=== PATIENT | female | born 1950 | race Caucasian/White ===

== ENCOUNTER 2018-06-09 11:43 | Observation (INO) | payer MEDICARE ==
[2018-06-09] MEDS ORDERED: NovoLOG Insulin SQ PRN (13:27)
[2018-06-09] MEDS ORDERED: Colace 100 MG PO PRN (13:27)
[2018-06-09] MEDS ORDERED: TYLENOL 325 MG PO PRN (13:27)
[2018-06-09] MEDS ORDERED: FEVERALL 650 MG PR PRN (13:27)
--- NOTE | 2018-06-09 13:27 | PCM.HP.ADD ---
Addendum to History & Physical - History & Physical Addendum Addendum to History & Physical: This certifies that the History & Physical in the electronic chart reflects the current health status of the patient. If there are changes in the H&P these changes/exceptions are listed as follows.
[2018-06-09] MEDS ORDERED: DUONEB 0.5-3 MG/3 ml Neb IH ONE (13:29)
[2018-06-09] MEDS ORDERED: Sodium Chloride 0.9% 1000 ML 1,000 ML IV SCH (13:30)
[2018-06-09] MEDS: DUONEB 0.5-3 MG/3 ml Neb IH SCH ×2 (13:41→19:33)
--- NOTE | 2018-06-09 14:16 | XRAY ---
Indication: Short of breath. Comparison: May 13, 2011. PA/lateral chest remains hyperinflated without focal infiltrate, consolidation, or large effusion. Heart is not enlarged. Bony thorax again demonstrates mild osteopenia, degenerative changes, and minimal scoliosis. New T6/T7 compression fractures of uncertain chronicity. Impression: Stable COPD. Negative for acute pneumonic process or CHF. New T6/T7 compression fractures of uncertain chronicity.
[2018-06-09 14:43] LABS: Hematocrit 42.3 % (35-47); Hemoglobin 13.6 gm/dl (12.0-16.0); Mean Cell Volume 101.9 fl (78-100); Mean Corpuscular Hemoglobin 32.8 pg (26-32); Mean Corpuscular Hgb Concent. 32.2 g/dl (32-36); Mean Platelet Volume 9.7 fl (6-9.5); Platelet Count 261 K/mm3 (150-450); Red Blood Count 4.15 M/mm3 (4.1-5.4); Red Cell Distribution Width 12.4 % (11.5-14.0); White Blood Count 6.6 K/mm3 (4.0-10.5)
[2018-06-09 14:57] LABS: ALBUMIN 4.5 g/dL (3.5-5.0); ALKALINE PHOSPHATASE 82 U/L (38-126); ANION GAP 14.9 MEQ/L (5-15); BLOOD UREA NITROGEN 8 mg/dL (7-17); CHLORIDE 98 mmol/L (98-107); Calcium 9.5 mg/dL (8.4-10.2); Carbon Dioxide 29 mmol/L (22-30); Creatinine 1 0.77 mg/dL (0.52-1.04); Glucose 126 mg/dL (74-106); NT PRO BNP 90.9 pg/mL (0-900); Potassium 4.3 mmol/L (3.5-5.1); SGOT/AST 29 U/L (14-36); SGPT/ALT 16 U/L (0-35); SODIUM 138 mmol/L (137-145); Total Protein 7.7 g/dL (6.3-8.2)
[2018-06-09] MEDS: Protonix 40MG Tablet PO SCH (15:03)
[2018-06-09] MEDS: Sodium Chloride 0.9% 1000 ML 1,000 ML IV SCH (15:03)
[2018-06-09] MEDS: solu-MEDROL 40 MG IV SCH ×3 (15:03→23:40)
[2018-06-09] MEDS: ROCEPHIN 1 Gm-D5w 50 ml Bag** 1 G/50 ML IVPB IV SCH (15:03)
[2018-06-09] MEDS: Norco 10/325 MG Tablet PO PRN (15:11)
[2018-06-09] MEDS: Zithromax 500 MG/ 250 ML NaCl Premix 500 MG/250 ML IVPB IV SCH (16:08)
[2018-06-09] MEDS ORDERED: Requip 0.5 MG PO ONE (16:18)
[2018-06-09 16:32] LABS: Appearance CLEAR (CLEAR); Bilirubin NEGATIVE (NEGATIVE); Blood NEGATIVE Ery/ul (0-5); Glucose NEGATIVE (NEGATIVE); Ketones NEGATIVE (NEGATIVE); Leukocyte Esterase MODERATE (NEGATIVE); Nitrite NEGATIVE (NEGATIVE); Protein,Urine Dip NEGATIVE (Negative); Specific Gravity 1.003 (1.005-1.025); Urobilinogen NEGATIVE mg/dL (0-1)
[2018-06-09 17:50] LABS: ANISOCYTOSIS 1+; BAND 1 % (0.0-2.0); Granulocyte Absolute (ANC) 5.88 (1.4-6.9); Lymphocytes 4 % (24-44); Monocyte 7 % (0.0-12.0); Neutrophils 88 % (36.0-66.0); Platelet Estimate NORMAL (NORMAL); Total Cells Counted 100
[2018-06-09] MEDS: Cardizem CD 120 MG PO SCH (20:36)
[2018-06-09] MEDS: Cymbalta 30 MG Capsule PO SCH (20:37)
[2018-06-09] MEDS: Pepcid 20 MG PO SCH (20:38)
[2018-06-09] MEDS: ELAVIL 25 MG PO SCH (20:38)
[2018-06-09] MEDS: LYRICA 150MG PO SCH (20:38)
[2018-06-09] MEDS: Requip 0.5 MG PO SCH (20:39)
[2018-06-09] MEDS ORDERED: DILTIAZEM HCL 120 MG PO SCH (22:00)
[2018-06-10] MEDS: DUONEB 0.5-3 MG/3 ml Neb IH SCH ×4 (00:39→20:18)
[2018-06-10] MEDS: Norco 10/325 MG Tablet PO PRN ×3 (05:21→20:02)
[2018-06-10] MEDS: TENORMIN 50 MG PO SCH (09:18)
[2018-06-10] MEDS: ROCEPHIN 1 Gm-D5w 50 ml Bag** 1 G/50 ML IVPB IV SCH (09:18)
[2018-06-10] MEDS: Pepcid 20 MG PO SCH ×2 (09:18→21:20)
[2018-06-10] MEDS: solu-MEDROL 40 MG IV SCH ×4 (09:18→21:21)
[2018-06-10] MEDS: Protonix 40MG Tablet PO SCH (09:23)
[2018-06-10] MEDS: DELTASONE 10 MG PO SCH (09:23)
[2018-06-10] MEDS: Zithromax 500 MG/ 250 ML NaCl Premix 500 MG/250 ML IVPB IV SCH (09:23)
[2018-06-10] MEDS ORDERED: PROVENTIL 2.5 MG/3 ML NEB IH PRN (10:44)
[2018-06-10] MEDS ORDERED: PROVENTIL 2.5 MG/3 ML NEB IH ONE (10:45)
--- NOTE | 2018-06-10 11:29 | PCM.NOTE ---
Date and Time: 06/10/181127 Subjective Assessment: doing little better,still shortness of breath - Review of Systems Constitutional: No Fever, No Chills Eyes: No Symptoms Ears, Nose, & Throat: No Symptoms Respiratory: Cough, Orthopnea, Short Of Breath, Wheezing Cardiac: No Chest Pain, No Edema, No Syncope Abdominal/Gastrointestinal: No Abdominal Pain, No Nausea, No Vomiting, No Diarrhea Genitourinary Symptoms: No Dysuria Musculoskeletal: No Back Pain, No Neck Pain Skin: No Rash Neurological: No Dizziness, No Focal Weakness, No Sensory Changes Psychological: No Symptoms Endocrine: No Symptoms Hematologic/Lymphatic: No Symptoms Immunological/Allergic: No Symptoms Objective Exam General Appearance: no apparent distress, alert Neurologic Exam: alert, oriented x 3, cooperative, normal mood/affect, nml cerebellar function, sensation nml, No motor deficits Skin Exam: normal color, warm, dry Eye Exam: PERRL, EOMI, eyes nml inspection Ears, Nose, Throat Exam: normal ENT inspection, pharynx normal, moist mucous membranes Neck Exam: normal inspection, non-tender, supple, full range of motion Respiratory Exam: normal breath sounds, lungs clear, No respiratory distress Cardiovascular Exam: regular rate/rhythm, normal heart sounds Gastrointestinal/Abdomen Exam: soft, No tenderness, No mass Extremity Exam: normal inspection, normal range of motion Back Exam: normal inspection, normal range of motion, No CVA tenderness, No vertebral tenderness Pelvic Exam: deferred Rectal Exam: deferred OBJECTIVE DATA Vital Signs: Vital Signs - 24 hr Temp Pulse Resp BP BP BP Pulse Ox 06/10/18 11:25 98.1 F 100 H 18 133/63 98 06/10/18 10:52 99 H 22 96 06/10/18 09:18 100 H 141/65 06/10/18 07:05 98.0 F 88 18 123/56 95 06/10/18 05:14 82 22 93 L 06/10/18 04:00 98.2 F 77 22 122/88 94 L 06/10/18 00:41 86 22 95 06/09/18 23:42 98.0 F 89 20 133/67 96 06/09/18 19:41 96 06/09/18 19:37 86 20 96 06/09/18 19:18 98.0 F 86 20 120/56 97 06/09/18 15:39 98.2 F 85 18 123/56 97 06/09/18 13:43 80 20 93 L 06/09/18 12:39 98.3 F 78 18 118/57 118/57 93 L 06/09/18 12:11 98.3 F 78 18 118/57 118/57 93 L Oxygen-Last 24 hours O2 Percentage 3 Liters = 32% O2 Percentage 3 Liters = 32% O2 Percentage 3 Liters = 32% O2 Percentage 3 Liters = 32% O2 Percentage 3 Liters = 32% Pain Assessment - Last Documented Pain Intensity 6 Pain Scale Used 0-10 Pain Scale Intake and Output: Intake & Output 06/07/18 06/08/18 06/09/18 06/10/18 11:59 11:59 11:59 11:59 Intake Total 2653 Output Total 600 Balance 3 Weight 69 kg Lab Results: Accuchecks Accucheck Value: 178 Accucheck Value: 196 Accucheck Value: 189 Lab Results-Last 24 Hours 06/09/18 06/09/18 06/09/18 Range/Units 13:27 13:27 13:30 WBC 6.6 (4.0-10.5) K/mm3 RBC 4.15 (4.1-5.4) M/mm3 Hgb 13.6 (12.0-16.0) gm/dl Hct 42.3 (35-47) % MCV 101.9 H (78-100) fl MCH 32.8 H (26-32) pg MCHC 32.2 (32-36) g/dl RDW 12.4 (11.5-14.0) % Plt Count 261 (150-450) K/mm3 MPV 9.7 H (6-9.5) fl Absolute Granulocytes 5.88 (1.4-6.9) Segmented Neutrophils 88 H (36.0-66.0) % Band Neutrophils 1 (0.0-2.0) % Lymphocytes (Manual) 4 L (24-44) % Monocytes (Manual) 7 (0.0-12.0) % Platelet Estimate NORMAL (NORMAL) RBC Morphology ABNORMAL Anisocytosis 1+ Sodium 138 (137-145) mmol/L Potassium 4.3 (3.5-5.1) mmol/L Chloride 98 (98-107) mmol/L Carbon Dioxide 29 (22-30) mmol/L Anion Gap 14.9 (5-15) MEQ/L BUN 8 (7-17) mg/dL Creatinine 0.77 (0.52-1.04) mg/dL Estimated GFR > 60.0 ML/MIN Glucose 126 H (74-106) mg/dL Hemoglobin A1c 5.37 (4.5-6.0) % Calcium 9.5 (8.4-10.2) mg/dL Total Bilirubin 0.60 (0.2-1.3) mg/dL AST 29 (14-36) U/L ALT 16 (0-35) U/L Alkaline Phosphatase 82 (38-126) U/L NT-Pro-B Natriuret Pep 90.9 (0-900) pg/mL Serum Total Protein 7.7 (6.3-8.2) g/dL Albumin 4.5 (3.5-5.0) g/dL Urine Color (YELLOW) Urine Appearance (CLEAR) Urine pH (5-6) Ur Specific [place] (1.005-1.025) Urine Protein (Negative) Urine Ketones (NEGATIVE) Urine Blood (0-5) Dom/ul Urine Nitrite (NEGATIVE) Urine Bilirubin (NEGATIVE) Urine Urobilinogen (0-1) mg/dL Ur Leukocyte Esterase (NEGATIVE) Urine WBC (Auto) (0-5) /HPF Urine RBC (Auto) (0-2) /HPF U Epithel Cells (Auto) (FEW) /HPF Urine Bacteria (Auto) (NEGATIVE) /HPF Urine Mucus (Auto) (NEGATIVE) /HPF Urine Glucose (NEGATIVE) mg/dL 06/09/ Range/Units 14:10 WBC (4.0-10.5) K/mm3 RBC (4.1-5.4) M/mm3 Hgb (12.0-16.0) gm/dl Hct (35-47) % MCV (78-100) fl MCH (26-32) pg MCHC (32-36) g/dl RDW (11.5-14.0) % Plt Count (150-450) K/mm3 MPV (6-9.5) fl Absolute Granulocytes (1.4-6.9) Segmented Neutrophils (36.0-66.0) % Band Neutrophils (0.0-2.0) % Lymphocytes (Manual) (24-44) % Monocytes (Manual) (0.0-12.0) % Platelet Estimate (NORMAL) RBC Morphology Anisocytosis Sodium (137-145) mmol/L Potassium (3.5-5.1) mmol/L Chloride (98-107) mmol/L Carbon Dioxide (22-30) mmol/L Anion Gap (5-15) MEQ/L BUN (7-17) mg/dL Creatinine (0.52-1.04) mg/dL Estimated GFR ML/MIN Glucose (74-106) mg/dL Hemoglobin A1c (4.5-6.0) % Calcium (8.4-10.2) mg/dL Total Bilirubin (0.2-1.3) mg/dL AST (14-36) U/L ALT (0-35) U/L Alkaline Phosphatase (38-126) U/L NT-Pro-B Natriuret Pep (0-900) pg/mL Serum Total Protein (6.3-8.2) g/dL Albumin (3.5-5.0) g/dL Urine Color STRAW (YELLOW) Urine Appearance CLEAR (CLEAR) Urine pH 6.0 (5-6) Ur Specific [place] 1.003 (1.005-1.025) Urine Protein NEGATIVE (Negative) Urine Ketones NEGATIVE (NEGATIVE) Urine Blood NEGATIVE (0-5) Dom/ul Urine Nitrite NEGATIVE (NEGATIVE) Urine Bilirubin NEGATIVE (NEGATIVE) Urine Urobilinogen NEGATIVE (0-1) mg/dL Ur Leukocyte Esterase MODERATE (NEGATIVE) Urine WBC (Auto) 3-5 (0-5) /HPF Urine RBC (Auto) 3-5 (0-2) /HPF U Epithel Cells (Auto) RARE (FEW) /HPF Urine Bacteria (Auto) RARE (NEGATIVE) /HPF Urine Mucus (Auto) SLIGHT (NEGATIVE) /HPF Urine Glucose NEGATIVE (NEGATIVE) mg/dL Radiology Exams: Radiology Procedures Category Date Time Status CHEST 2 VIEWS (PA AND LAT) Routine Exams 06/09/18 14:03 Completed Multi-Disciplinary Progress Notes: Multi-Disciplinary Progress Notes 06/10/18 08:45 (created 06/10/18 08:54) Case Management Note by Susana Egan PT REPORTS THAT SHE IS FEELING BETTER, BUT STILL EXTREMELY SOB WITH ALL ACTIVITY. DENIES NEEDS FOR DISCHARGE. Initialized on 06/10/18 08:54 - END OF NOTE Assessment/Plan (1) COPD exacerbation Current Visit: Yes Status: Acute Assessment & Plan: Last Vital Signs Temp 98.1 F 06/10/18 11:25 Pulse 100 H 06/10/18 11:25 Resp 18 06/10/18 11:25 BP 133/63 06/10/18 11:25 Pulse Ox 98 06/10/18 11:25 Allergies aspirin Allergy (Verified 06/09/18 13:15) Active Medications Acetaminophen (Feverall 650 Mg) 650 mg ND Q4H PRN PRN PRN Reason: PAIN AND/OR FEVER Stop: 07/09/18 13:26 Acetaminophen (Tylenol 325 Mg) 650 mg PO Q4HPRN PRN PRN Reason: CHEST PAIN Stop: 07/09/18 13:26 Hydrocodone Bitart/Acetaminophen ([place] 10/325 Mg Tablet) 1 tab PO Q6HPRN PRN PRN Reason: PAIN Stop: 06/14/18 14:45 Last Admin: 06/10/18 05:21 Dose: 1 tab Albuterol Sulfate (Proventil 2.5 Mg/3 Ml Neb) 2.5 mg IH Q4H PRN PRN PRN Reason: SHORTNESS OF BREATH/WHEEZING Stop: 07/10/18 10:43 Last Admin: 06/10/18 10:46 Dose: 2.5 mg Albuterol/Ipratropium (Duoneb 0.5-3 Mg/3 Ml Neb) 3 ml IH Q6HRT JO Stop: 07/09/18 13:59 Last Admin: 06/10/18 04:44 Dose: 3 ml Amitriptyline HCl (Elavil 25 Mg) 25 mg PO HS JO Stop: 07/09/18 21:59 Last Admin: 06/09/18 20:38 Dose: 25 mg Atenolol (Tenormin 50 Mg) 50 mg PO DAILY JO Stop: 07/10/18 09:59 Last Admin: 06/10/18 09:18 Dose: 50 mg Diltiazem HCl (Cardizem Cd 120 Mg) 120 mg PO HS [facility] Stop: 07/09/18 21:59 Last Admin: 06/09/18 20:36 Dose: 120 mg Docusate Sodium (Colace 100 Mg) 100 mg PO BIDPRN PRN PRN Reason: CONSTIPATION Stop: 07/09/18 13:26 Duloxetine HCl (Cymbalta 30 Mg Capsule) 60 mg PO HS [facility] Stop: 07/09/18 21:59 Last Admin: 06/09/18 20:37 Dose: 60 mg Famotidine (Pepcid 20 Mg) 20 mg PO Q12HT [facility] Stop: 07/09/18 21:59 Last Admin: 06/10/18 09:18 Dose: 20 mg Azithromycin (Zithromax 500 Mg/ 250 Ml Nacl Premix) 500 mg in 250 mls @ 250 mls /hr IV Q24H10 [facility] Stop: 07/09/18 13:59 Last Admin: 06/10/18 09:23 Dose: 250 mls/hr Ceftriaxone Sodium/Dextrose (Rocephin 1 Gm-D5w 50 Ml Bag) 1 g in 50 mls @ 100 mls/hr IV Q24H10 [facility] Stop: 07/09/18 13:59 Last Admin: 06/10/18 09:18 Dose: 100 mls/hr Sodium Chloride (Sodium Chloride 0.9% 1000 Ml) 1,000 mls @ 0 mls/hr IV .Q0M [facility] Stop: 07/09/18 13:29 Sodium Chloride (Sodium Chloride 0.9% 1000 Ml) 1,000 mls @ 50 mls/hr IV .Q20H [facility] Stop: 07/09/18 13:29 Last Admin: 06/09/18 15:03 Dose: 50 mls/hr Insulin Aspart (Novolog Insulin) 0 unit SQ UD PRN PRN Reason: Accuchek Stop: 07/09/18 13:26 Methylprednisolone Sodium Succinate (Solu-Medrol 40 Mg) 40 mg IV QID [facility] Stop: 07/09/18 12:59 Last Admin: 06/10/18 09:18 Dose: 40 mg Pantoprazole Sodium (Protonix 40mg Tablet) 40 mg PO DAILY [facility] Stop: 07/09/18 13:59 Last Admin: 06/10/18 09:23 Dose: 40 mg Prednisone (Deltasone 10 Mg) 10 mg PO DAILY [facility] Stop: 07/10/18 09:59 Last Admin: 06/10/18 09:23 Dose: 10 mg Pregabalin (Lyrica 150mg) 150 mg PO HS JO Stop: 07/09/18 21:59 Last Admin: 06/09/18 20:38 Dose: 150 mg Ropinirole HCl (Requip 0.5 Mg) 1.5 mg PO JO Stop: 07/09/18 21:59 Last Admin: 06/09/18 20:39 Dose: 0.5 mg Intake & Output 06/09/18 06/10/18 11:59 11:59 Intake Total 2653 Output Total 600 Balance 3 Weight 69 kg Orders 06/09/18 12:30 BLOOD CULTURE Routine 06/09/18 13:00 Methylprednisolone Sod Suc 40M [solu-MEDROL 40 MG] 40 mg IV QID 06/09/18 13:22 Supervisor Pipe Finishing/Discharge Plan 06/09/18 13:27 Place in Observation ROUTINE Acetaminophen 325 mg [Tylenol 325 mg] 650 mg PO Q4HPRN PRN Acetaminophen 650 mg [Feverall 650 mg] 650 mg ND Q4H PRN PRN Docusate Sodium 100 mg [Colace 100 MG] 100 mg PO BIDPRN PRN Insulin Aspart [NovoLOG Insulin] See Dose Instructions SQ UD PRN Oxygen NASAL CANNULA 2 lpm 06/09/18 13:30 Up Ad Tricia TOLERATED Accucheck ACHS Telemetry PROTOCOL NaCl 0.9% 1000 ml [Sodium Chloride 0.9% 1000 ML] 1,000 ml IV 50 mls/hr NaCl 0.9% 1000 ml [Sodium Chloride 0.9% 1000 ML] 1,000 ml IV TKO Peak Expiratory Flow Rate ONCE 06/09/18 14:00 Albuterol/Ipratropium 3ml Neb* [DUONEB 0.5-3 MG/3 ml Neb] 3 ml IH Q6HRT Azithromycin 500 mg/250 ml [Zithromax 500 MG/ 250 ML NaCl Premix] 500 mg in 250 ml IV Q24H10 Ceftriaxone 1 GM/50 ML PREMIX* [ROCEPHIN 1 Gm-D5w 50 ml Bag] 1 g in 50 ml IV Q24H10 PANTOPRAZOLE 40 mg Tablet [Protonix 40MG Tablet] 40 mg PO DAILY 06/09/18 14:04 Respiratory Therapy Assessment DAILY 06/09/18 14:46 Hydrocodone/APAP 10/325 mg [[place] 10/325 MG Tablet] 1 tab PO Q6HPRN PRN 06/09/18 19:40 Pulse Oximetry .spot check 06/09/18 22:00 Amitriptyline HCl 25 mg [Elavil 25 mg] 25 mg PO HS Diltiazem HCl 120 mg [Cardizem CD 120 MG] 120 mg PO HS Duloxetine HCl 30 mg [Cymbalta 30 MG Capsule] 60 mg PO HS Famotidine 20 mg [Pepcid 20 MG] 20 mg PO Q12HT Pregabalin [Lyrica 150Mg] 150 mg PO HS Ropinirole HCl 0.5 mg [Requip 0.5 MG] 1.5 mg PO HS 06/09/18 Dinner 1800 Calorie ADA 06/10/18 10:00 Atenolol 50 mg [Tenormin 50 mg] 50 mg PO DAILY Prednisone 10 mg [Deltasone 10 mg] 10 mg PO DAILY 06/10/18 10:44 Albuterol 2.5 mg/3 ml Neb [Proventil 2.5 mg/3 ml Neb] 2.5 mg IH Q4H PRN PRN Lab Tests 06/09/18 06/09/18 06/09/18 13:27 13:27 13:30 WBC 6.6 RBC 4.15 Hgb 13.6 Hct 42.3 MCV 101.9 H MCH 32.8 H MCHC 32.2 RDW 12.4 Plt Count 261 MPV 9.7 H Absolute Granulocytes 5.88 Segmented Neutrophils 88 H Band Neutrophils 1 Lymphocytes (Manual) 4 L Monocytes (Manual) 7 Platelet Estimate NORMAL RBC Morphology ABNORMAL Anisocytosis 1+ Sodium 138 Potassium 4.3 Chloride 98 Carbon Dioxide 29 Anion Gap 14.9 BUN 8 Creatinine 0.77 Estimated GFR > 60.0 Glucose 126 H Hemoglobin A1c 5.37 Calcium 9.5 Total Bilirubin 0.60 AST 29 ALT 16 Alkaline Phosphatase 82 NT-Pro-B Natriuret Pep 90.9 Serum Total Protein 7.7 Albumin 4.5 Urine Color Urine Appearance Urine pH Ur Specific [place] Urine Protein Urine Ketones Urine Blood Urine Nitrite Urine Bilirubin Urine Urobilinogen Ur Leukocyte Esterase Urine WBC (Auto) Urine RBC (Auto) U Epithel Cells (Auto) Urine Bacteria (Auto) Urine Mucus (Auto) Urine Glucose 06/09/18 14:10 WBC RBC Hgb Hct MCV MCH MCHC RDW Plt Count MPV Absolute Granulocytes Segmented Neutrophils Band Neutrophils Lymphocytes (Manual) Monocytes (Manual) Platelet Estimate RBC Morphology Anisocytosis Sodium Potassium Chloride Carbon Dioxide Anion Gap BUN Creatinine Estimated GFR Glucose Hemoglobin A1c Calcium Total Bilirubin AST ALT Alkaline Phosphatase NT-Pro-B Natriuret Pep Serum Total Protein Albumin Urine Color STRAW Urine Appearance CLEAR Urine pH 6.0 Ur Specific [place] 1.003 Urine Protein NEGATIVE Urine Ketones NEGATIVE Urine Blood NEGATIVE Urine Nitrite NEGATIVE Urine Bilirubin NEGATIVE Urine Urobilinogen NEGATIVE Ur Leukocyte Esterase MODERATE Urine WBC (Auto) 3-5 Urine RBC (Auto) 3-5 U Epithel Cells (Auto) RARE Urine Bacteria (Auto) RARE Urine Mucus (Auto) SLIGHT Urine Glucose NEGATIVE Code(s): J44.1 - CHRONIC OBSTRUCTIVE PULMONARY DISEASE W (ACUTE) EXACERBATION (2) COPD with emphysema Current Visit: Yes Status: Acute Code(s): J43.9 - EMPHYSEMA, UNSPECIFIED
[2018-06-10] MEDS: Sodium Chloride 0.9% 1000 ML 1,000 ML IV SCH (14:58)
[2018-06-10] MEDS: LYRICA 150MG PO SCH (21:19)
[2018-06-10] MEDS: Cardizem CD 120 MG PO SCH (21:19)
[2018-06-10] MEDS: Cymbalta 30 MG Capsule PO SCH (21:19)
[2018-06-10] MEDS: ELAVIL 25 MG PO SCH (21:19)
[2018-06-10] MEDS: Requip 0.5 MG PO SCH (21:20)
[2018-06-11] MEDS: DUONEB 0.5-3 MG/3 ml Neb IH SCH ×2 (05:41→07:15)
[2018-06-11] MEDS: TENORMIN 50 MG PO SCH (07:49)
[2018-06-11] MEDS: Norco 10/325 MG Tablet PO PRN (07:49)
[2018-06-11] MEDS: Pepcid 20 MG PO SCH (07:50)
[2018-06-11] MEDS: Protonix 40MG Tablet PO SCH (07:50)
[2018-06-11] MEDS: DELTASONE 10 MG PO SCH (07:50)
[2018-06-11] MEDS: solu-MEDROL 40 MG IV SCH (09:59)
[2018-06-11] MEDS: ROCEPHIN 1 Gm-D5w 50 ml Bag** 1 G/50 ML IVPB IV SCH (09:59)
[2018-06-11] MEDS: Zithromax 500 MG/ 250 ML NaCl Premix 500 MG/250 ML IVPB IV SCH (10:43)
[2018-06-11 12:05] VITALS: BP 132/60; PULSE 76; O2SAT 98
--- NOTE | 2018-06-11 12:19 | PCM.DS ---
Discharge Summary Date of Admission: 06/09/18 11:55 Admitting Physician: EDWARD MATUTE Primary Care Provider: EDWARD MATUTE Allergies Allergies aspirin Allergy (Verified 06/09/18 13:15) Hospital Summary - Hospital Course Hospital Course: Last Vital Signs Temp 97.8 F 06/11/18 12:00 Pulse 76 06/11/18 12:00 Resp 21 06/11/18 12:00 BP 132/60 06/11/18 12:00 Pulse Ox 98 06/11/18 12:00 Allergies aspirin Allergy (Verified 06/09/18 13:15) Active Medications Acetaminophen (Feverall 650 Mg) 650 mg DC Q4H PRN PRN PRN Reason: PAIN AND/OR FEVER Stop: 07/09/18 13:26 Acetaminophen (Tylenol 325 Mg) 650 mg PO Q4HPRN PRN PRN Reason: CHEST PAIN Stop: 07/09/18 13:26 Last Admin: 06/10/18 21:23 Dose: 650 mg Hydrocodone Bitart/Acetaminophen ([place] 10/325 Mg Tablet) 1 tab PO Q6HPRN PRN PRN Reason: PAIN Stop: 06/14/18 14:45 Last Admin: 06/11/18 07:49 Dose: 1 tab Albuterol Sulfate (Proventil 2.5 Mg/3 Ml Neb) 2.5 mg IH Q4H PRN PRN PRN Reason: SHORTNESS OF BREATH/WHEEZING Stop: 07/10/18 10:43 Last Admin: 06/10/18 10:46 Dose: 2.5 mg Albuterol/Ipratropium (Duoneb 0.5-3 Mg/3 Ml Neb) 3 ml IH Q6HRT JO Stop: 07/09/18 13:59 Last Admin: 06/11/18 07:15 Dose: 3 ml Amitriptyline HCl (Elavil 25 Mg) 25 mg PO HS JO Stop: 07/09/18 21:59 Last Admin: 06/10/18 21:19 Dose: 25 mg Atenolol (Tenormin 50 Mg) 50 mg PO DAILY JO Stop: 07/10/18 09:59 Last Admin: 06/11/18 07:49 Dose: 50 mg Diltiazem HCl (Cardizem Cd 120 Mg) 120 mg PO HS [facility] Stop: 07/09/18 21:59 Last Admin: 06/10/18 21:19 Dose: 120 mg Docusate Sodium (Colace 100 Mg) 100 mg PO BIDPRN PRN PRN Reason: CONSTIPATION Stop: 07/09/18 13:26 Duloxetine HCl (Cymbalta 30 Mg Capsule) 60 mg PO HS [facility] Stop: 07/09/18 21:59 Last Admin: 06/10/18 21:19 Dose: 60 mg Famotidine (Pepcid 20 Mg) 20 mg PO Q12HT [facility] Stop: 07/09/18 21:59 Last Admin: 06/11/18 07:50 Dose: 20 mg Azithromycin (Zithromax 500 Mg/ 250 Ml Nacl Premix) 500 mg in 250 mls @ 250 mls /hr IV Q24H10 [facility] Stop: 07/09/18 13:59 Last Admin: 06/11/18 10:43 Dose: 250 mls/hr Ceftriaxone Sodium/Dextrose (Rocephin 1 Gm-D5w 50 Ml Bag) 1 g in 50 mls @ 100 mls/hr IV Q24H10 [facility] Stop: 07/09/18 13:59 Last Admin: 06/11/18 09:59 Dose: 100 mls/hr Sodium Chloride (Sodium Chloride 0.9% 1000 Ml) 1,000 mls @ 0 mls/hr IV .Q0M [facility] Stop: 07/09/18 13:29 Last Admin: 06/11/18 10:54 Dose: 50 mls/hr Sodium Chloride (Sodium Chloride 0.9% 1000 Ml) 1,000 mls @ 50 mls/hr IV .Q20H [facility] Stop: 07/09/18 13:29 Last Admin: 06/10/18 14:58 Dose: 50 mls/hr Insulin Aspart (Novolog Insulin) 0 unit SQ UD PRN PRN Reason: Accuchek Stop: 07/09/18 13:26 Last Admin: 06/10/18 22:54 Dose: 2 unit Methylprednisolone Sodium Succinate (Solu-Medrol 40 Mg) 40 mg IV QID [facility] Stop: 07/09/18 12:59 Last Admin: 06/11/18 09:59 Dose: 40 mg Pantoprazole Sodium (Protonix 40mg Tablet) 40 mg PO DAILY JO Stop: 07/09/18 13:59 Last Admin: 06/11/18 07:50 Dose: 40 mg Prednisone (Deltasone 10 Mg) 10 mg PO DAILY JO Stop: 07/10/18 09:59 Last Admin: 06/11/18 07:50 Dose: 10 mg Pregabalin (Lyrica 150mg) 150 mg PO HS JO Stop: 07/09/18 21:59 Last Admin: 06/10/18 21:19 Dose: 150 mg Ropinirole HCl (Requip 0.5 Mg) 1.5 mg PO HS JO Stop: 07/09/18 21:59 Last Admin: 06/10/18 21:20 Dose: 1.5 mg Intake & Output 06/11/18 06/12/18 11:59 11:59 Intake Total 2955 Output Total 1050 Balance 1905 Microbiology 06/09/18 14:22 Blood Blood Culture - Preliminary NO GROWTH TO DATE 06/09/18 12:30 Blood Blood Culture - Preliminary NO GROWTH TO DATE - Vitals & Intake/Output Vital Signs: Vital Signs Temperature 97.8 F 06/11/18 12:00 Pulse Rate 76 06/11/18 12:00 Respiratory Rate 21 06/11/18 12:00 Blood Pressure 132/60 06/11/18 12:00 O2 Sat by Pulse Oximetry 98 06/11/18 12:00 Oxygen-Last Documented O2 Percentage 4 Liters = 36% Intake & Output: Intake & Output 06/09/18 06/10/18 06/11/18 06/12/18 11:59 11:59 11:59 11:59 Intake Total 2653 2955 Output Total 600 1050 Balance 2053 1905 Weight 69 kg - Lab Result Diagrams: 06/09/18 13:27 06/09/18 13:27 Lab Results-Last 24 Hrs: Accuchecks Date 06/11/18 Date 06/10/18 Time 07:30 Time 21:45 Accucheck Value: 130 Accucheck Value: 219 Accucheck Value: 183 Micro Results-Entire Visit: Microbiology 06/09/18 14:22 Blood Culture - Preliminary Blood NO GROWTH TO DATE 06/09/18 12:30 Blood Culture - Preliminary Blood NO GROWTH TO DATE Accuchecks Date 06/11/18 Date 06/10/18 Time 07:30 Time 21:45 Accucheck Value: 130 Accucheck Value: 219 Accucheck Value: 183 - Radiology Exams Ordered Rad Exams-Entire Visit: Radiology Procedures Category Date Time Status CHEST 2 VIEWS (PA AND LAT) Routine Exams 06/09/18 14:03 Completed - Procedures and Test Procedures and Tests throughout Hospitalization: Therapy Orders & Screens 06/09/18 13:22 RT Screen per Nursing Assess Comment: Protocol Order Physician Instructions: Greater than 3 points order RT Admission Screen Reason For Exam: Triggered on Admission Diagnosis: COPD EXACERBATION Diagnosis: COPD EXACERBATION Pneumonia: No Home O2: Yes: 3-4L Asthma: No CHF: No Home CPAP/BIPAP: No Home Nebs/MDI: Yes Total Points: 10 Smoking Cessation Education Comment: Diagnosis: COPD EXACERBATION Smoking Status: Current some day smoker How long have you smoked: 8YEARS Have you smoked in the past 12 months: Yes Do you dip or chew tobacco: No 06/09/18 13:27 Oxygen NASAL CANNULA 2 lpm Comment: Diagnosis: COPD EXACERBATION Respiratory Therapy Consult ROUTINE Comment: Reason For Exam: Diagnosis: COPD EXACERBATION 06/09/18 13:30 Peak Expiratory Flow Rate ONCE Comment: Reason For Exam: Diagnosis: COPD EXACERBATION 06/09/18 14:04 Respiratory Therapy Assessment DAILY Comment: Diagnosis: COPD EXACERBATION Discharge Exam General Appearance: no apparent distress, alert Neurologic Exam: alert, oriented x 3, cooperative, normal mood/affect, nml cerebellar function, sensation nml, No motor deficits Skin Exam: normal color, warm, dry Eye Exam: PERRL, EOMI, eyes nml inspection Ears, Nose, Throat Exam: normal ENT inspection, pharynx normal, moist mucous membranes Neck Exam: normal inspection, non-tender, supple, full range of motion Respiratory Exam: normal breath sounds, lungs clear, No respiratory distress Cardiovascular Exam: regular rate/rhythm, normal heart sounds Gastrointestinal/Abdomen Exam: soft, No tenderness, No mass Extremity Exam: normal inspection, normal range of motion Back Exam: normal inspection, normal range of motion, No CVA tenderness, No vertebral tenderness Pelvic Exam: deferred Rectal Exam: deferred Final Diagnosis/Problem List - Final Discharge Diagnosis/Problem (1) COPD exacerbation Current Visit: Yes Status: Acute (2) COPD with emphysema Current Visit: Yes Status: Acute - Discharge Discharge Date: 06/11/18 Disposition: Home, Self-Care Condition: Stable Prescriptions: New Cephalexin Mh 500 mg [Keflex 500 mg] 500 mg PO QID #20 capsule Continue Ropinirole HCl 0.5 mg [Requip 0.5 MG] 1.5 mg PO HS Prednisone 10 mg [Deltasone 10 mg] 10 mg PO DAILY dilTIAZem HCl [Diltiazem ER] 120 mg PO HS Amitriptyline HCl 25 mg [Elavil 25 mg] 25 mg PO HS Atenolol 50 mg [Tenormin 50 mg] 50 mg PO DAILY Hydrocodone/APAP 10/325 mg [[place] 10/325 MG Tablet] 1 tab PO Q6HPRN PRN PRN Reason: Pain Duloxetine HCl 30 mg [Cymbalta 30 MG Capsule] 60 mg PO HS Pregabalin [Lyrica 150Mg] 150 mg PO HS Follow up with: EDWARD MATUTE MD [Primary Care Provider] - 06/19/18 11:00 am (in [place] )
== END 2018-06-11 13:20 | disposition home or self-care (01) ==
LOC: MED SURG 11:55
PROVIDERS: ADMIT General Practice; ATTEND General Practice
DX: J44.1 Chronic obstructive pulmonary disease with (acute) exacerbation (principal); J43.9 Emphysema, unspecified; I10 Essential (primary) hypertension; F32.9 Major depressive disorder, single episode, unspecified; J45.909 Unspecified asthma, uncomplicated; F41.9 Anxiety disorder, unspecified; E05.90 Thyrotoxicosis, unspecified without thyrotoxic crisis or storm; M79.7 Fibromyalgia; Z99.81 Dependence on supplemental oxygen; E78.5 Hyperlipidemia, unspecified
CPT/HCPCS: 36415; 71046; 80053; 81001; 82962; 83036; 83880; 85025; 87040; 93268; 94150; 94640; 94760; G0378; J7609; J0456; J0696; J2920; A9270-GY